=== PATIENT | female | born 1985 | race Caucasian/White ===

== ENCOUNTER 2017-02-12 18:30 | Emergency (ER) | payer OTHER ==
[2017-02-12 19:45] VITALS: RESP 18
[2017-02-12] MEDS ORDERED: cefTRIAXone (Rocephin) 250 mg Inj IM STA (19:48)
[2017-02-12] MEDS ORDERED: Emtricitabine-Tenofovir 200 mg-300 mg Tab PO STA (19:49)
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
[2017-02-12] MEDS ORDERED: Emtricitabine-Tenofovir 200 mg-300 mg Tab PO NR (20:00)
[2017-02-12 20:18] LABS: RBC URINE 13 /hpf (0-3); URINE BACTERIA RARE (<OCC); URINE BILIRUBIN NEGATIVE (NEGATIVE); URINE BLOOD 1+ (NEGATIVE); URINE COLOR Yellow (YELLOW); URINE GLUCOSE (UA) NORMAL (Normal); URINE KETONE NEGATIVE (NEGATIVE); URINE LEUKOCYTE ESTERASE 1+ Leu/uL (Negative); URINE PROTEIN NEGATIVE (NEGATIVE); WBC URINE 14 /hpf (0-5)
[2017-02-12 20:40] VITALS: BP 101/59; PULSE 71; TEMP 97.9
[2017-02-12 21:19] VITALS: O2SAT 95
== END 2017-02-12 21:06 | disposition home or self-care (01) ==
LOC: C.ER 18:30
DX: Z04.41 Encounter for examination and observation following alleged adult rape (principal)
CPT/HCPCS: 81001; 87491; 87591; 96372; 99285; J0696

== ENCOUNTER 2018-09-17 02:06 | Emergency (ER) | payer SELFPAY ==
[2018-09-17 02:07] VITALS: BMI 26.6
[2018-09-17 02:20] VITALS: O2SAT 98
[2018-09-17 02:22] VITALS: BP 117/74; PULSE 78; RESP 16; TEMP 98.5
--- NOTE | 2018-09-17 02:26 | C.PDOC ---
History Of Present Illness 33 year old female presents stating her feet have bothering her and complaining of redness to her hands. Patient states she has had foot discomfort since she was a child. Patient with extensive psych Hx. Admits to ETOH use tonight. Time Seen by Provider: 09/17/18 02:22 Chief Complaint (Nursing): Lower Extremity Problem/Injury History Per: Patient History/Exam Limitations: no limitations Onset/Duration Of Symptoms: Days Current Symptoms Are (Timing): Still Present Recent travel outside of the [place]: No Past Medical History Reviewed: Historical Data, Nursing Documentation, Vital Signs Vital Signs: Last Vital Signs Temp 98.5 F 09/17/18 02:21 Pulse 78 09/17/18 02:21 Resp 16 09/17/18 02:21 BP 117/74 09/17/18 02:21 Pulse Ox 98 09/17/18 02:21 - Medical History PMH: Asthma Family History: States: Unknown Family Hx - Social History Hx Tobacco Use: Yes Hx Alcohol Use: Yes Hx Substance Use: No - Immunization History Hx Tetanus Toxoid Vaccination: No Hx Influenza Vaccination: No Hx Pneumococcal Vaccination: No Review Of Systems Constitutional: Negative for: Fever, Chills Cardiovascular: Negative for: Chest Pain, Palpitations Respiratory: Negative for: Cough, Shortness of Breath Gastrointestinal: Negative for: Nausea, Vomiting Musculoskeletal: Positive for: Foot Pain (Bilateral) Skin: Positive for: Other (Redness to bilateral hands) Neurological: Negative for: Weakness, Numbness Physical Exam - Physical Exam Appears: Non-toxic, No Acute Distress, Other (Bizarre, ETOH on breath) Skin: Warm, Other (Erythema to palms and feet) Head: Atraumatic, Normacephalic Eye(s): bilateral: Normal Inspection Oral Mucosa: Moist Neck: Normal, Supple Chest: Symmetrical, No Tenderness Cardiovascular: Rhythm Regular Respiratory: Normal Breath Sounds, No Rales, No Rhonchi, No Wheezing Gastrointestinal/Abdominal: Soft, No Tenderness Neurological/Psych: Oriented x3, Normal Speech ED Course And Treatment O2 Sat by Pulse Oximetry: 98 (Room air) Pulse Ox Interpretation: Normal Medical Decision Making Medical Decision Making: anxiety, alcohol, ? feet pain since childhood with normal appearing feet extensive psych hx benadryl given, reassured Disposition Doctor Will See Patient In The: Office Counseled Patient/Family Regarding: Studies Performed, Diagnosis - Disposition Referrals: [facility] [Outside] [facility] [Outside] [facility] [Outside] [facility] [Outside] Disposition: HOME/ ROUTINE Disposition Time: 02:26 Condition: GOOD Additional Instructions: motrin/advil and Benadryl as needed for symptomatic relief of your symptoms. Forms: General Discharge Instructions, [facility] (Polish) - Clinical Impression Clinical Impression: Foot pain, bilateral, Skin irritation - Scribe Statement The provider has reviewed the documentation as recorded by the Scribhardeep Bishop All medical record entries made by the Zionibe were at my direction and personally dictated by me. I have reviewed the chart and agree that the record accurately reflects my personal performance of the history, physical exam, medical decision making, and the department course for this patient. I have also personally directed, reviewed, and agree with the discharge instructions and disposition.
== END 2018-09-17 02:54 | disposition home or self-care (01) ==
LOC: C.ER 02:06
DX: M79.672 Pain in left foot (principal); M79.671 Pain in right foot; L98.9 Disorder of the skin and subcutaneous tissue, unspecified

== ENCOUNTER 2018-10-12 22:13 | Emergency (ER) | payer SELFPAY ==
[2018-10-12 22:13] VITALS: BMI 26.6
[2018-10-12 23:07] LABS: BASO % 0.6 % (0.0-2.0); EOS # 0.1 K/uL (0.0-0.7); HEMOGLOBIN 12.9 g/dL (11.0-16.0); LYMPH # 1.7 K/uL (1.0-4.3); MEAN CELL VOLUME 84.9 fL (81.0-99.0); MEAN CORPUSCULAR HEMOGLOBIN 28.2 pg (27.0-31.0); MEAN CORPUSCULAR HGB CONC 33.2 g/dL (33.0-37.0); MEAN PLATELET VOLUME 8.7 fL (7.2-11.7); MONO # 0.5 K/uL (0.0-0.8); MONO % 7.2 % (0.0-10.0); NEUT # 4.9 K/uL (1.8-7.0); NEUT % 67.2 % (50.0-75.0); NRBC % 0.1 % (0.0-2.0); RBC 4.57 Mil/uL (3.80-5.20); RED CELL DISTRIBUTION WIDTH 14.7 % (11.5-14.5); WHITE BLOOD COUNT 7.3 K/uL (4.8-10.8)
[2018-10-12 23:12] LABS: SQUAMOUS EPITHIAL 3 /hpf (0-5); URINE BACTERIA RARE (<OCC); URINE BILIRUBIN 1+ (NEGATIVE); URINE BLOOD NEGATIVE (NEGATIVE); URINE CLARITY Hazy (Clear); URINE COLOR Amber (YELLOW); URINE GLUCOSE (UA) NORMAL (Normal); URINE LEUKOCYTE ESTERASE TRACE Leu/uL (Negative); URINE PROTEIN NEGATIVE (NEGATIVE)
[2018-10-12 23:20] LABS: ALB/GLOB RATIO 1.8 (1.0-2.1); ALBUMIN 4.2 g/dL (3.5-5.0); ALT/SGPT 23 U/L (9-52); AST/SGOT 34 U/L (14-36); BLOOD UREA NITROGEN 8 mg/dL (7-17); CALCIUM 9.2 mg/dl (8.6-10.4); GFR NON-AFRICAN AMERICAN > 60
[2018-10-12 23:23] LABS: BARBITURATES, UR NEGATIVE (NEGATIVE); BENZODIAZEPINES, UR NEGATIVE (NEGATIVE); OPIATES, UR NEGATIVE (NEGATIVE)
[2018-10-12 23:28] LABS: PHENCYCLIDINE, UR POSITIVE (NEGATIVE)
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
--- NOTE | 2018-10-13 08:28 | RAD ---
Date of service: 10/13/2018 PROCEDURE: CHEST RADIOGRAPH, 1 VIEW HISTORY: crisis eval COMPARISON: None available. FINDINGS: LUNGS: Clear. PLEURA: No pneumothorax or pleural fluid seen. CARDIOVASCULAR: No aortic atherosclerotic calcification present. Normal. OSSEOUS STRUCTURES: No significant abnormalities. VISUALIZED UPPER ABDOMEN: Normal. OTHER FINDINGS: None. IMPRESSION: No active disease.
[2018-10-13 09:52] VITALS: BP 106/65; PULSE 62; RESP 18; TEMP 98.3; O2SAT 96
== END 2018-10-13 10:21 | disposition home or self-care (01) ==
LOC: C.ER 22:13
DX: F12.10 Cannabis abuse, uncomplicated (principal); F16.10 Hallucinogen abuse, uncomplicated; F29 Unspecified psychosis not due to a substance or known physiological condition; F20.9 Schizophrenia, unspecified; Z72.0 Tobacco use
CPT/HCPCS: 71045; 80053; 81001; 83735; 84100; 84703; 85025; 99284; G0480